=== PATIENT | female | born 1995 | race Asian ===

== ENCOUNTER 2019-06-13 07:17 | Emergency (ER) | payer OTHER ==
[~2019-06-13] VITALS: Ht 154.9 cm; Wt 75.8 kg
[2019-06-13 07:56] LABS: PLATELET COUNT 356 K/uL (152-353)
[2019-06-13 07:57] LABS: SODIUM 138 mmol/L (136-145)
[2019-06-13 08:21] LABS: PARTIAL THROMBOPLASTIN TIME 24.6 SECONDS (24.5-33.6)
[2019-06-13 10:00] VITALS: BP 112/72; TEMP 97.8
== END 2019-06-13 10:00 | disposition home or self-care (01) ==
LOC: ED 07:17
PROVIDERS: Hospitalist
DX: R10.13 Epigastric pain (principal); K21.9 Gastro-esophageal reflux disease without esophagitis
CPT/HCPCS: 80053; 81000; 81025; 82550; 83880; 84484; 85027; 85379; 85610; 85730; 93005; 99283

== ENCOUNTER 2019-06-30 19:11 | Emergency (ER) | payer OTHER ==
[~2019-06-30] VITALS: Ht 154.9 cm; Wt 75.8 kg
[2019-06-30 19:56] LABS: PLATELET COUNT 293 K/uL (152-353)
[2019-06-30 20:02] LABS: POTASSIUM 3.9 mmol/L (3.6-5.2)
[2019-06-30 21:20] VITALS: BP 129/79; TEMP 97.9
== END 2019-06-30 21:20 | disposition home or self-care (01) ==
LOC: ED 19:11
PROVIDERS: Emergency Medicine
DX: M62.838 Other muscle spasm (principal)
CPT/HCPCS: 36415; 80053; 81000; 82150; 83690; 85027; 93005; 96374; 99284; J1885

== ENCOUNTER 2023-04-14 16:58 | Emergency (ER) | payer OTHER ==
[~2023-04-14] VITALS: Ht 154.9 cm; Wt 83.9 kg
[2023-04-14 17:06] VITALS: BP 105/47; TEMP 97.9
== END 2023-04-14 20:20 | disposition home or self-care (01) ==
LOC: ED 16:58
DX: K64.4 Residual hemorrhoidal skin tags (principal)
CPT/HCPCS: 99283